=== PATIENT | male | born 2000 | race Two or more races ===

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

== ENCOUNTER 2021-04-10 16:06 | Emergency (ER) | payer OTHER ==
[2021-04-10 17:52] LABS: BASOPHIL 0.8 % (0-2); HGB 14.6 g/dl (13.2-18.0); LYMPHOCYTE 31.2 % (15-48); MCH 37.1 pg (25.0-31.0); MCHC 34.8 g/dL (32.0-36.0); MCV 106.6 fL (78.0-100.0); MONOCYTE 7.9 % (0-12); MPV 10.3 fL (6.0-9.5); NEUTROPHIL 58.6 % (41-80); NRBC 0; RBC 3.94 M/uL (4.70-6.00); RDW 16.2 % (11.5-14.0); WBC 3.9 K/uL (4.0-10.5)
[2021-04-10 18:03] LABS: PLT 56 K/uL (150-400)
[2021-04-10 18:14] LABS: ALBUMIN 2.2 g/dL (3.4-5.0); ALKALINE PHOSHATASE 269 U/L (46-116); ALT 422 U/L (16-63); AMYLASE 63 U/L (25-115); AST 365 U/L (15-37); BILIRUBIN - TOTAL 8.6 mg/dL (0.2-1.0); BUN 11 mg/dL (7-18); BUN/CREAT RATIO (CALC) 14.1 RATIO; CHLORIDE 103 mmol/L (98-107); CO2 (BICARBONATE) 29 mmol/L (21-32); CREATININE 0.78 mg/dL (0.67-1.17); GLOBULIN (CALCULATION) 5.1 g/dL; GLUCOSE 79 mg/dL (74-106); LIPASE 345 U/L (73-393); POTASSIUM 3.8 mmol/L (3.5-5.1); TOTAL PROTEIN 7.3 g/dL (6.4-8.2)
[2021-04-10 18:26] LABS: CORONAVIRUS 2019 SARS-COV-2 NEGATIVE (NEGATIVE); INFLUENZA A NAA NEGATIVE (NEGATIVE)
[2021-04-10 19:00] LABS: BILIRUBIN 2+ mg/dL (NEGATIVE); BLOOD NEGATIVE Ery/uL (NEGATIVE); CLARITY CLEAR (CLEAR); COLOR YELLOW (YELLOW); GLUCOSE (U) NORMAL (NORMAL); LEUKOCYTES NEGATIVE Leu/uL (NEGATIVE); NITRITE NEGATIVE (NEGATIVE); PROTEIN NEGATIVE (NEGATIVE); pH 7.5 (5.0-9.0)
[2021-04-10 22:52] LABS: INR 1.63 (0.9-1.2); PROTHROMBIN TIME 18.6 SECONDS (11.8-13.4); PTT 35.8 SECONDS (24.4-34.7)
[2021-04-12 07:55] LABS: BASOPHIL 0.6 % (0-2); EOSINOPHIL 1.4 % (0-5); HCT 38.8 % (42.0-52.0); HGB 13.7 g/dl (13.2-18.0); LYMPHOCYTE 37.3 % (15-48); MCH 37.6 pg (25.0-31.0); MCHC 35.3 g/dL (32.0-36.0); MCV 106.6 fL (78.0-100.0); MONOCYTE 10.4 % (0-12); MPV 9.9 fL (6.0-9.5); NEUTROPHIL 50.3 % (41-80); NRBC 0; PLT 51 K/uL (150-400); RBC 3.64 M/uL (4.70-6.00); RDW 16.3 % (11.5-14.0); WBC 3.6 K/uL (4.0-10.5)
[2021-04-12 08:13] LABS: ALBUMIN 1.8 g/dL (3.4-5.0); BILIRUBIN - TOTAL 7.3 mg/dL (0.2-1.0); BUN/CREAT RATIO (CALC) 12.8 RATIO; CREATININE 0.78 mg/dL (0.67-1.17); POTASSIUM 4.2 mmol/L (3.5-5.1); TOTAL PROTEIN 6.8 g/dL (6.4-8.2)
[2021-04-13 07:33] LABS: BASOPHIL 0.6 % (0-2); EOSINOPHIL 1.9 % (0-5); HCT 41.2 % (42.0-52.0); HGB 14.1 g/dl (13.2-18.0); LYMPHOCYTE 34.5 % (15-48); MCH 36.7 pg (25.0-31.0); MCHC 34.2 g/dL (32.0-36.0); MCV 107.3 fL (78.0-100.0); MPV 10.7 fL (6.0-9.5); NEUTROPHIL 53.7 % (41-80); NRBC 0; PLT 52 K/uL (150-400); RBC 3.84 M/uL (4.70-6.00); RDW 16.3 % (11.5-14.0); WBC 3.1 K/uL (4.0-10.5)
[2021-04-13 07:46] LABS: CREATININE 0.83 mg/dL (0.67-1.17); GLOBULIN (CALCULATION) 5.1 g/dL; TOTAL PROTEIN 7.1 g/dL (6.4-8.2)
== END 2021-04-13 11:00 | disposition other institution (70) ==
LOC: FER 16:06
PROVIDERS: Emergency Medicine; Nurse Practitioner Family
DX: K81.0 Acute cholecystitis (principal); R74.01 Elevation of levels of liver transaminase levels; Z20.822 Contact with and (suspected) exposure to COVID-19
CPT/HCPCS: 36415; 71045; 76705; 80053; 81003; 82150; 83690; 83880; 84484; 85025; 85379; 85610; 85730; 93005; 93971; J2543; J7030; U0002

== ENCOUNTER 2021-10-03 07:30 | Emergency (ER) | payer OTHER ==
[2021-10-03 08:08] LABS: BASOPHIL 0.8 % (0-2); HGB 15.2 g/dl (13.2-18.0); LYMPHOCYTE 31.7 % (15-48); MCH 39.7 pg (25.0-31.0); MCHC 35.3 g/dL (32.0-36.0); MCV 112.3 fL (78.0-100.0); MONOCYTE 9.1 % (0-12); NEUTROPHIL 54.1 % (41-80); NRBC 0; PLT 57 K/uL (150-400); RBC 3.83 M/uL (4.70-6.00); RDW 13.7 % (11.5-14.0); WBC 3.5 K/uL (4.0-10.5)
[2021-10-03 08:12] LABS: INR 1.6 (0.9-1.2); PROTHROMBIN TIME 18.5 SECONDS (11.9-13.9); PTT 34.6 SECONDS (24.9-34.6)
[2021-10-03 08:19] LABS: ALBUMIN 2.9 g/dL (3.4-5.0); ALKALINE PHOSHATASE 225 U/L (46-116); ALT 203 U/L (16-63); AST 177 U/L (15-37); BILIRUBIN - TOTAL 2.7 mg/dL (0.2-1.0); BUN 7 mg/dL (7-18); BUN/CREAT RATIO (CALC) 10.1 RATIO; CHLORIDE 105 mmol/L (98-107); CO2 (BICARBONATE) 28 mmol/L (21-32); CREATININE 0.69 mg/dL (0.67-1.17); GLOBULIN (CALCULATION) 4.2 g/dL; GLUCOSE 103 mg/dL (74-106); LIPASE 247 U/L (73-393); POTASSIUM 3.6 mmol/L (3.5-5.1); TOTAL PROTEIN 7.1 g/dL (6.4-8.2)
== END 2021-10-03 13:02 | disposition home or self-care (01) ==
LOC: FER 07:30
PROVIDERS: Emergency Medicine
DX: K75.4 Autoimmune hepatitis (principal); R06.02 Shortness of breath
CPT/HCPCS: 36415; 71045; 80053; 82140; 83690; 83735; 83880; 84484; 85025; 85610; 85730; 93005; J1940